=== PATIENT | female | born 1970 | race Caucasian/White ===

== ENCOUNTER → 2018-03-10 12:51 | Outpatient (CLI) | payer BC, SELFPAY ==
[2018-03-10 14:08] LABS: Alanine Aminotransferase 115 U/L (12-78); Albumin Level 3.7 gm/dL (3.4-5.0); Albumin/Globulin Ratio 0.8 (1.1-1.8); Alkaline Phosphatase 109 U/L (46-116); Aspartate Amino Transferase 71 U/L (15-37); Bilirubin,Total 0.4 mg/dL (0.2-1.0); Blood Urea Nitrogen 10 mg/dL (7-18); Calcium 9.2 mg/dL (8.5-10.1); Carbon Dioxide 25 mmol/L (21.0-32.0); Chloride 104 mmol/L (98-107); Chol/HDL Ratio 4.6 (1-3.5); Cholesterol 188 mg/dL (140-200); Estimated Glomerular Filt Rate 77 ml/min (>60); GFR (African American) 93 ML/MIN (>60); Globulin 4.7 gm/dl (1.3-3.2); Glucose 86 mg/dL (74-106); HDL Cholesterol 41 mg/dL (29-89); LDL Cholesterol 118 mg/dL (0-130); Sodium 139 mmol/L (136-145); Total Protein,Serum 8.4 gm/dL (6.4-8.2); Triglycerides 143 mg/dL (30-200); VLDL Cholesterol 29 mg/dL (0-40)
== END ==
PROVIDERS: Visit Provider Internal Medicine Adolescent Medicine
DX: E78.00 Pure hypercholesterolemia, unspecified (principal)
CPT/HCPCS: 36415; 80053; 80061

== ENCOUNTER → 2018-03-17 07:37 | Outpatient (CLI) | payer BC, SELFPAY ==
--- NOTE | 2018-03-17 07:54 | US_ITS ---
US liver HISTORY: ITS.REASON: ELEVATED LIVER ENZYMES ORDERING PHYSICIAN: Arpan Mcdonnell MD PATIENT AGE: 47 years COMPARISON: No relevant studies only plain films abdomen 2012 FINDINGS: PANCREASgood visualization of pancreas. No obvious mass or abnormal fluid collection. No ductal dilatation LIVER:Diffuse fatty changes of liver. Hepatic steatosis.. Homogeneous Diffuse increased echogenicity. No intrahepatic biliary ductal dilatation evident portal vein normal size normal direction flow . Common duct normal diameter measuring 3.2 mm at hilum of liver. RIGHT KIDNEY:Unremarkable. Normal size and echogenicity. No hydronephrosis 9.6 cm cm in length . GALLBLADDER:No gallstones,. No Pericholecystic fluid, or biliary dilatation. . Upper normal gallbladder wall thickness in some areas. Probable gallbladder polyp inferior wall. Fixed. No shadowing. Roughly 3.5 mm size IMPRESSION:...... Gallbladder. No gallstones. Polyp superior wall measuring just over 3.5 mm Upper normal GB wall thickness Liver. Hepatic steatosis. Diffuse homogeneous fatty changes. No focal lesion.
[2018-03-18 09:41] LABS: Hep A Ab, IgM Negative (Negative); Hepatitis B Core Antibody IgM Negative (Negative); Hepatitis B Surface Antigen Negative (Negative)
[2018-03-19 11:59] LABS: Hepatitis C Antibody 0.1 s/co ratio (0.0-0.9)
== END ==
PROVIDERS: PCP Nurse Practitioner Family; Visit Provider Internal Medicine Adolescent Medicine
DX: R74.8 Abnormal levels of other serum enzymes (principal); R94.5 Abnormal results of liver function studies
CPT/HCPCS: 36415; 76705; 80074

== ENCOUNTER 2024-02-27 15:03 | Emergency (ER) | payer OTHER, SELFPAY ==
[2024-02-27 15:04] VITALS: BP 130/71; PULSE 89; RESP 19; TEMP 36.4; O2SAT 99; BMI 45.2
--- NOTE | 2024-02-27 15:26 | ED_ITS ---
Discharge Plan Disposition Patient Disposition: Home, Self-Care Condition: Good Prescriptions Prescriptions: New cyclobenzaprine 10 mg Tablet 10 mg PO BID PRN (Reason: Muscle Spasm) Qty: 20 0RF methylprednisolone 4 mg Tablets,Dose Pack 4 mg PO DIRECTED 6 Days Qty: 21 0RF Rx Instructions: Take 1 pack as directed for 6 days No Action fluticasone propionate 16 GM spray,suspension 2 spray inhalation DAILY Patient Comments: USE 1 SPRAY IN EACH NOSTRIL EVERY DAY FOR 6 MONTHS lisinopril 10 mg tablet 10 mg PO DAILY Referrals Follow up/Referrals: Amparo Zhao APRN [Primary Care Provider] - See instructions Activity Restrictions/Add. Instructions Additional Instructions/Restrictions: Go home and rest. It would be best if you rested tomorrow too. No heavy lifting. No twisting. Take the oral medications as directed. The muscle relaxer (cyclobenzaprine--Flexeril) will make you drowsy, so don't drive or operate heavy machinery after taking it. Don't start the oral steroids (medrol dose pack) until tomorrow, since you had the shots in here today. Follow up with your regular doctor. GO TO THE ER FOR ANY WORSENING SYMPTOMS OR CONCERN, ESPECIALLY BOWEL OR BLADDER ISSUES, SADDLE AREA NUMBNESS, FEVER, ETC Clinical Impressions Clinical Impression: Low back pain with sciatica Instructions Patient Instructions: DI for Low Back Pain, DI for Sciatica, Ketorolac Injection, Dexamethasone Injection Discharge ED Provider: Mike Horowitz [facility] General Stated complaint: lower back pain Time Seen by Provider: 02/27/24 15:24 History of Present Illness Provider Complaint: She states that she has had low back pain that radiates down her left leg for the past 2 days. She states that her symptoms began after she had to go on a long car ride. She denies any fall or injury. Related Data Home Medications Medication Instructions Recorded Confirmed fluticasone propionate 50 2 spray inhalation DAILY ALLERGIES 08/06/18 02/27/24 mcg/actuation nasal spray,suspension lisinopril 10 mg tablet 10 mg PO DAILY 02/27/24 02/27/24 Previous Rx's Medication Instructions Recorded cyclobenzaprine 10 mg tablet 10 mg PO BID PRN Muscle Spasm #20 02/27/24 tabs methylprednisolone 4 mg tablets in 4 mg PO DIRECTED 6 days #21 tabs 02/27/24 a dose pack Allergies Allergy/AdvReac Type Severity Reaction Status Date / Time erythromycin base Allergy Verified 02/27/24 15:32 Penicillins Allergy Verified 02/27/24 15:[address] [facility] Disclaimer: The information contained in this section may have been updated after the patient was seen, as this information can be updated by other users. Social History Smoking Status: Never smoker alcohol intake: never current occupational status: employed Travel in the last 8 weeks: None ROS Obtained: Yes All systems reviewed & no additional complaints except as documented Constitutional Constitutional: Denies chills and Denies fever(s) Eyes Eyes: Denies eye discharge ENT Ears, Nose, Mouth, and Throat: Denies dizziness, Denies otalgia, Denies neck pain and Denies sore throat Cardiovascular Cardiovascular: Denies chest pain Respiratory Respiratory: Denies shortness of breath, Denies chest congestion, Denies cough, Denies stridor and Denies wheezing Gastrointestinal Gastrointestingal: Denies nausea or vomiting Genitourinary Female Genitourinary: Denies dysuria, Denies urinary frequency, Denies urinary incontinence, Denies urinary hesitancy and Denies urinary urgency Musculoskeletal Musculoskeletal: Reports back pain and Denies neck pain Integumentary/Breasts Skin/Breast: Denies rash Neurologic Neurologic: Denies dizziness, Denies paresthesias and Reports radicular pain Allergic/Immunologic Allergic/Immunologic: Denies wheezing Physical Exam General General appearance: alert and in no apparent distress Head Head exam: atraumatic, normocephalic and normal inspection Eye Eye exam: Present normal appearance, PERRL and EOMI ENT ENT exam: Present normal exam, normal oropharynx, mucous membranes moist, TM's normal bilaterally and normal external ear exam Neck Neck exam: Present normal inspection, full ROM and trachea midline; Absent meningismus or lymphadenopathy Chest Chest inspection: Present normal inspection and symmetric chest wall rise; Absent tenderness Respiratory Respiratory exam: Present normal lung sounds bilaterally; Absent respiratory distress Cardiovascular Cardiovascular exam: Present regular rate and normal rhythm; Absent JVD Abdominal Exam Abdominal exam: Present soft and normal bowel sounds; Absent distention, tenderness or guarding Extremities Exam Extremities exam: Present normal inspection, full ROM and normal capillary refill; Absent calf tenderness Back Exam Back exam: Present normal inspection; Absent tenderness Neurological Exam Neurological exam: Present alert, oriented X3, CN II-XII intact, normal gait and reflexes normal; Absent motor sensory deficit Expanded Neurological Exam Cranial nerves: Normal: EOM function (II, III, IV, ), facial sensation (V), facial palsy (VII), gag reflex (IX), spinal accessory function (XI) and tongue deviation (XII) Cerebellar function: normal gait Motor strength - LUE: 5/5 Motor strength - RUE: 5/5 Motor strength - LLE: 5/5 Motor strength - RLE: 5/5 Sensory exam upper extremity: Normal: light touch and 2 point discrimination Sensory exam lower extremity: Normal: light touch and 2 point discrimination DTR: 2+: biceps (L), biceps (R), patellar (L), patellar (R), Achilles tendon (L) and Achilles tendon (R) Spinal cord function: Absent saddle anesthesia Psychiatric Psychiatric exam: Present normal affect and normal mood Skin Skin exam: Present warm, dry, intact and normal color Lymphatic Lymphatic Findings: no adenopathy Medical Decision Making Medical Records Medical records reviewed: No I reviewed the patient's medical records. Rodolfo Inquiry Pt receiving controlled substance: No
[2024-02-27] MEDS: KETOROLAC 60MG/2ML VIAL 60 MG IM (15:57)
[2024-02-27] MEDS: DEXAMETHASONE 4MG/ML 1ML VIAL 8 MG IM (15:58)
[2024-02-27 16:15] VITALS: BP 130/71; PULSE 89; RESP 18; TEMP 36.4; O2SAT 99
== END 2024-02-27 16:15 | disposition home or self-care (01) ==
PROVIDERS: Emergency Provider Nurse Practitioner Family; PCP Nurse Practitioner Family
DX: M54.42 Lumbago with sciatica, left side (principal)
CPT/HCPCS: 96372; 99204; 99212; G0463; J1100; J1885